=== PATIENT | female | born 1970 | race Caucasian/White ===

== ENCOUNTER 2024-05-23 08:24 | Day surgery (SDC) | payer OTHER, SELFPAY ==
[2024-05-23] VITALS (11 sets, daily range): BP systolic 102–121; BP diastolic 48–83; PULSE 73–105; RESP 13–18; TEMP 36.6–37.7; O2SAT 93–97; BMI 35.9
--- NOTE | 2024-05-23 08:52 | CRLHL7_ITS ---
For Patients: As a result of the Century Cures Act, medical imaging exams and procedure reports are released immediately into your electronic medical record. You may view this report before your referring provider. If you have questions, please contact your health care provider. INDICATION: RT SIDED ABD PAIN, VOMITING, DIARRHEA TECHNIQUE: CT of the abdomen and pelvis was obtained with 111 mL of Isovue 370 intravenous contrast. Please note that all CT scans at this facility use dose modulation, iterative reconstruction, and/or weight-based dosing when appropriate to reduce radiation dose to as low as reasonably achievable. COMPARISON: None. FINDINGS: Lower thorax: Left lower lobe calcified granuloma. Liver and biliary tree: Normal. Gallbladder: Normal. Spleen: Normal. Pancreas: Normal. Adrenal glands: Normal. Kidneys and ureters: No hydronephrosis. No obstructing renal calculi. Gastrointestinal tract: Scattered colonic diverticulosis without CT evidence of acute diverticulitis. Normal appendix. 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 No evidence of bowel obstruction. Peritoneal cavity: Trace free fluid within the pelvis. Bladder: Normal. Pelvic organs: Status post hysterectomy. 5.0 x 2.6 centimeter mildly rim enhancing tubular structure is seen in the pelvis (2/107). Vasculature: Normal. Lymph nodes: Normal. Abdominal wall: Small to moderate lower abdominal ventral hernia containing fat and nonobstructed small bowel. Musculoskeletal: [id number] degenerative changes of the visualized spine. Mild degenerative changes of the bilateral hips. IMPRESSION: 1. 5.0 x 2.6 centimeter mildly rim enhancing tubular structure is seen in the pelvis. This may represent Meckel diverticulitis. Pelvic inflammatory disease is also within the differential, though the patient is status post hysterectomy. Consider pelvic ultrasound for further evaluation. 2. 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 No evidence of bowel obstruction. 3. Small to moderate lower abdominal ventral hernia containing fat and nonobstructed small bowel. Please note that all CT scans at this facility use dose modulation, iterative reconstruction, and/or weight-based dosing when appropriate to reduce radiation dose to as low as reasonably achievable. Dictated by West Mariee MD @ 05/23/2024 10:14:35 AM (Electronically Signed)
--- NOTE | 2024-05-23 08:55 | ED.ABDPAIN ---
HPI - Abdominal Pain General Chief Complaint: Abdominal Pain Stated Complaint: abdominal pain Time Seen by Provider: 05/23/24 08:47 History of Present Illness HPI narrative: This 53-year-old female comes in reporting a couple days of abdominal pain with nausea, vomiting, and diarrhea. She thought it was some kind of toxin her virus but symptoms have persisted. She attempted to go to work today but was unable to function because of these symptoms. She is taking Zepbound and has done so for the past 5 months and has not had any previous problem and no recent change in the dosing. She states that she has been unable to take food and drink because of these symptoms. She does arrive with normal vital signs except her heart rate is elevated. Related Data Allergies Allergy/AdvReac Type Severity Reaction Status Date / Time No Known Drug Allergies Allergy Verified 05/23/24 11:32 Review of Systems Status of ROS Reports: 10 or more systems reviewed and unremarkable except as noted in History and below Narrative Constitutional: No fevers, no weight gain or loss. Eyes: No discharge. No vision changes. HENT: No congestion, no sore throat, no ear pain. Cardiovascular: No chest pain, no palpitations. Respiratory: No shortness of breath, no wheezes, no cough. Gastrointestinal: Diffuse abdominal pain radiating through to her back with nausea, vomiting, and diarrhea. Genitourinary: No dysuria, no hematuria. Musculoskeletal: Normal range of motion. Skin: No rashes, no pruritis. Neurological: No dizziness, weakness, sensory change, speech change. Endo/Heme/Allergies: No bruising or bleeding. No polydipsia. Pysch: no suicidality, no anxiety, no insomnia. All other systems reviewed and are negative. PFSH PFS Social History Smoking Status: Never smoker How often do you have a drink containing alcohol: never How often do you have six or more drinks on one occasion: Never AUDIT-C Alcohol total score: 0 Non-prescribed substance use: denies use service: No Exam Narrative: Exam Narrative: Constitutional: Well-developed, well-nourished, no acute distress. HEENT: Normocephalic, atraumatic. Neck: Normal range of motion. Nontender. Supple. Heart: Regular. No murmurs. Normal rate. Intact distal pulses. Lungs: Clear to auscultation. No chest discomfort. No wheezes, rhonchi, or rales. Abdomen: Normal bowel sounds. Diffuse tenderness, right greater than left. Mild rebound tenderness. Genitalia: Deferred. Back: No midline tenderness. Normal range of motion. Extremities: Normal range of motion. No injury. Skin: Intact. No rash. Warm. No erythema or pallor. Neurologic: No altered sensation. No weakness. Alert and oriented. Psychiatric: No suicidality. No anxiety or depression. No insomnia. Nursing notes and vitals signs are reviewed. Const: Vital Signs, click to edit/add: Vital Signs - 24 hr 05/23/24 08:31 Temperature 98.1 F Pulse Rate [Pulse Oximeter] 105 H Respiratory Rate 18 Blood Pressure [Ri t Upper Arm] 116/83 Pulse Oximetry 95 Oxygen Delivery Me thod Room Air Course Vital Signs Vital signs: Initial Vital Signs Temperature 98.1 F 05/23/24 08:31 Temperature Source Temporal Artery Scan 05/23/24 08:31 Pulse Rate 105 H 05/23/24 08:31 Respiratory Rate 18 05/23/24 08:31 Blood Pressure 116/83 05/23/24 08:31 Blood Pressure Mean 94 05/23/24 08:31 Pulse Oximetry 95 05/23/24 08:31 Oxygen Delivery Method Room Air 05/23/24 08:31 Vital Signs Temperature 98.1 F 05/23/24 08:31 Pulse Rate 105 H 05/23/24 08:31 Respiratory Rate 18 05/23/24 08:31 Blood Pressure 116/83 05/23/24 08:31 Pulse Oximetry 95 05/23/24 08:31 Oxygen Delivery Method Room Air 05/23/24 08:31 Temperature 98.1 F 05/23/24 08:31 Pulse Rate 105 H 05/23/24 08:31 Respiratory Rate 18 05/23/24 08:31 Blood Pressure 116/83 05/23/24 08:31 Pulse Oximetry 95 05/23/24 08:31 Oxygen Delivery Method Room Air 05/23/24 08:31 Medications Administered Medications: Discontinued Medications Generic Name Dose Route Start Last Admin Trade Name Freq PRN Reason Stop Dose Admin Hydromorphone HCl 0.25 mg 05/23/24 08:52 05/23/24 12:36 Hydromorphone 0.5 Mg/0.5 Ml Inj IVP 05/23/24 08:53 Not Given ONCE ONE Hydromorphone HCl 0.25 mg 05/23/24 12:37 05/23/24 12:43 Hydromorphone 0.5 Mg/0.5 Ml Inj IVP 05/23/24 12:38 0.25 mg ONCE ONE Administration Sodium Chloride 500 mls @ 500 mls/hr 05/23/24 08:52 05/23/24 09:15 0.9 % Sodium Chloride 500 Ml IV 05/23/24 09:51 500 mls/hr .Q1H ONE Administration Ondansetron HCl 4 mg 05/23/24 08:52 05/23/24 09:15 Ondansetron 2 Mg/Ml Inj IVP 05/23/24 08:53 4 mg ONCE ONE Administration Ondansetron HCl 4 mg 05/23/24 12:37 05/23/24 12:43 Ondansetron 2 Mg/Ml Inj IVP 05/23/24 12:38 4 mg ONCE ONE Administration MDM - Abdominal Pain MDM Narrative Medical decision making narrative: This patient comes in with abdominal pain for the past couple days. An IV was established and labs are acquired. CT imaging is obtained which shows a tubular structure in the pelvis that is suspicious for the possibility of a Meckel's diverticulum. It is near the right ovary and possibly gynecologic in origin. I did consult with the surgeon on-call who reviewed the images and spoke with the radiologist regarding these findings. A pelvic ultrasound was ordered and I did consult with the OBGYN physician on-call. The ultrasound is not showing any particular new information to help understand this tubular structure. She has had a hysterectomy done a couple years ago and this include removal of her fallopian tubes. I relayed these findings to the surgeon on-call who plans to take her to the operating room this afternoon. The patient did receive IV dose of Dilaudid 0.5 mg and Zofran 4 mg which brought good relief to her pain. Lab Data Labs: Lab Results 05/23/24 Range/Units 09:30 WBC 8.95 (4.50-11.00) K/uL RBC 4.96 (4.00-5.20) m/uL Hgb 14.6 (12.0-16.0) gm/dL Hct 44.9 (33.0-51.0) % MCV 91 (80-100) fL MCH 29 (26-34) pg MCHC 33 (32-36) gm/dL RDW Coeff of Lucy 13.2 (11.5-15.5) % Plt Count 295 (140-440) K/uL Neut % (Auto) 77.8 H (42.0-72.0) % Lymph % (Auto) 16.0 L (20-44) % [place] % (Auto) 5.8 (0.0-11.0) % Eos % (Auto) 0.2 (0.0-7.0) % Baso % (Auto) 0.2 (0.0-3.0) % Neut # (Auto) 7.00 (1.7-7.0) K/uL Lymph # (Auto) 1.40 (0.90-2.90) K/uL [place] # (Auto) 0.50 (0.00-0.90) K/UL Eos # (Auto) 0.02 (0.00-0.50) K/uL Baso # (Auto) 0.02 (0.00-0.30) K/uL Abs Immat Gran (auto) 0.00 (0.00-0.30) K/uL Imm/Tot Granulo (auto) 0.0 % Sodium 137 (135-149) mmol/L Potassium 3.9 (3.6-5.1) mmol/L Chloride 106 (96-114) mmol/L Carbon Dioxide 24 (20-32) mmol/L Anion Gap 7 (7-15) mEq/L BUN 13 (7-30) mg/dL Creatinine 0.7 (0.5-1.5) mg/dL Estimated Creat Clear 81.18 Estimated GFR 104 ml/min Glucose 90 (60-115) mg/dL Calcium 10.1 (8.4-10.6) mg/dL Total Bilirubin 0.7 (0.1-1.5) mg/dL Direct Bilirubin 0.2 (0.0-0.5) mg/dL AST 25 (12-35) U/L ALT 17 (4-35) U/L Alkaline Phosphatase 107 (40-150) U/L Total Protein 7.5 (6.0-8.3) g/dL Albumin 4.5 (3.3-5.0) g/dL Lipase 63 (23-300) U/L Imaging Data CT scan - abdomen: Radiologist's impression: 1. 5.0 x 2.6 centimeter mildly rim enhancing tubular structure is seen in the pelvis. This may represent Meckel diverticulitis. Pelvic inflammatory disease is also within the differential, though the patient is status post hysterectomy. Consider pelvic ultrasound for further evaluation. 2. 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 No evidence of bowel obstruction. 3. Small to moderate lower abdominal ventral hernia containing fat and nonobstructed small bowel. Discharge Plan Discharge Clinical Impression: Meckel's diverticulum, Abdominal pain, Ventral hernia Patient Disposition: XFER to OR Condition: Unchanged Follow Up/Referrals: Provider,Not a Local [Primary Care Provider] -
[2024-05-23] MEDS: ONDANSETRON 2 MG/ML inj 4 MG IVP ×3 (09:15→18:52)
[2024-05-23] MEDS: 0.9 % SODIUM CHLORIDE 500 ML 500 ML IV (09:15)
[2024-05-23 09:40] LABS: Basophils Absolute Auto 0.02 K/uL (0.00-0.30); Basophils Percent Auto 0.2 % (0.0-3.0); Eosinophils Absolute Auto 0.02 K/uL (0.00-0.50); Eosinophils Percent Auto 0.2 % (0.0-7.0); Hematocrit 44.9 % (33.0-51.0); Hemoglobin* 14.6 gm/dL (12.0-16.0); Mean Corpuscular HGB Conc 33 gm/dL (32-36); Mean Corpuscular Hemoglobin 29 pg (26-34); Mean Corpuscular Volume 91 fL (80-100); Monocytes Percent Auto 5.8 % (0.0-11.0); Neutrophils Percent Auto 77.8 % (42.0-72.0); Platelet Count* 295 K/uL (140-440); RDW Coefficient of Variation % 13.2 % (11.5-15.5); Red Blood Count 4.96 m/uL (4.00-5.20); White Blood Count* 8.95 K/uL (4.50-11.00)
[2024-05-23 09:45] LABS: Slide Review Reflex No
[2024-05-23 09:57] LABS: Albumin* 4.5 g/dL (3.3-5.0); Chloride* 106 mmol/L (96-114)
[2024-05-23 09:58] LABS: Sodium* 137 mmol/L (135-149)
[2024-05-23 10:00] LABS: Alkaline Phosphatase* 107 U/L (40-150); Anion Gap 7 mEq/L (7-15); Aspartate Amino Transferase* 25 U/L (12-35); Bilirubin Direct* 0.2 mg/dL (0.0-0.5); Bilirubin Total* 0.7 mg/dL (0.1-1.5); Blood Urea Nitrogen* 13 mg/dL (7-30); Carbon Dioxide* 24 mmol/L (20-32); Creatinine* 0.7 mg/dL (0.5-1.5); Est. Creatinine Clearance* 81.18; Estimated Glomerular Filt Rate 104 ml/min; Glucose* 90 mg/dL (60-115); Potassium* 3.9 mmol/L (3.6-5.1); Total Protein* 7.5 g/dL (6.0-8.3)
[2024-05-23 10:01] LABS: Alanine Aminotransferase* 17 U/L (4-35); Calcium* 10.1 mg/dL (8.4-10.6); Lipase* 63 U/L (23-300)
--- NOTE | 2024-05-23 11:18 | CRLHL7_ITS ---
For Patients: As a result of the Century Cures Act, medical imaging exams and procedure reports are released immediately into your electronic medical record. You may view this report before your referring provider. If you have questions, please contact your health care provider. INDICATION: Pain. TECHNIQUE: Ultrasound pelvis transvaginal. Real-time sonographic images with spectral and color Doppler imaging of the ovaries were obtained. COMPARISON: Same day CT of the abdomen and pelvis. FINDINGS: Uterus: Surgically absent. Bowel gas obscures visualization of the ovaries. There is an anechoic tubular cystic structure within the deep midline superior pelvis measuring approximally 5.0 x 2.3 x 2.7 cm. This cystic structure extends slightly inferiorly and to the right adjacent to the right external iliac vessels, similar in appearance to today`s CT. No definite communication is seen between loops of adjacent bowel noting that evaluation is somewhat obscured due to bowel gas shadowing. Cul-de-sac: No significant free fluid. IMPRESSION: : Overall, findings are similar to same day CT. There is a tubular cystic structure deep within the pelvis without definite bowel communication. The ovaries are obscured on ultrasound; however, on CT, this tubular structure is in close proximity to the right ovary. Differential considerations remain a dilated right fallopian tube versus enlarged Meckel`s diverticulum/diverticulitis. The patient is status post hysterectomy. Correlation with prior operative report/surgical pathology may be beneficial to determine if right salpingectomy was performed. Dictated by Hortencia Alexis MD @ 05/23/2024 12:50:38 PM (Electronically Signed)
[2024-05-23] MEDS: HYDROmorphone 0.5 mg/0.5 ml inj 0.25 MG IVP (12:43)
[2024-05-23] MEDS: LACTATED RINGERS 500 ML 500 ML 125 ML IV ×2 (14:38→15:52)
--- NOTE | 2024-05-23 14:40 | P.GSHP_ITS ---
History of Present Illness History of Present Illness Date Seen: 05/23/24 Chief complaint: abdominal pain Narrative: Leena Salgado is a 53 year old female who presents to the emergency department today with abdominal pain for the past 2 days. She states that she woke up at 2:00 a.m. on Monday and had pain in her abdomen with vomiting. She had an episode of diarrhea x1. She has not had a bowel movement since. She states that the pain started in her back and then moved to the front of her abdomen. She states that yesterday she was not feeling good enough to go to work. She tried eating toast yesterday but that was the only thing she could keep down. She has had nausea along with this. Today she tried to go to work but only made it 1 hour and because of ongoing discomfort, she came in to be seen. She states that pressing down on her abdomen and hot pack will make the pain better. She had a pelvic ultrasound as part of her workup and the pain became worse. Her pain is located more in her right lower abdomen now. Movement makes the pain worse as well. She takes naltrexone and bupropion and for weight loss but has not changed her dose recently. She does have a history of gastric bypass. She had a hysterectomy and salpingectomy 2 years ago. They did leave her ovaries. She has also had 2 umbilical hernia repairs. She believes that mesh was used at least 1 of the times. [facility] Medical History (Updated 05/23/24 @ 14:47 by Asha Bennett MD) Vitamin B 12 deficiency ?E53.8 - Deficiency of other specified B group vitamins (ICD-10) Obesity ?E66.9 - Obesity, unspecified (ICD-10) Anxiety ?F41.9 - Anxiety disorder, unspecified (ICD-10) Surgical History (Updated 05/23/24 @ 14:46 by Asha Bennett MD) H/O umbilical hernia repair ?Z98.890 - Other specified postprocedural states (ICD-10) ?Z87.19 - Personal history of other diseases of the digestive system (ICD-10) History of hysterectomy ?Z90.710 - Acquired absence of both cervix and uterus (ICD-10) S/P gastric bypass ?Z98.84 - Bariatric surgery status (ICD-10) Social History Narrative: 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 Nonsmoker. Smoking Status: Never smoker How often do you have a drink containing alcohol: never How often do you have six or more drinks on one occasion: Never AUDIT-C Alcohol total score: 0 Non-prescribed substance use: denies use service: No Meds Home Medications and Allergies Allergies Allergy/AdvReac Type Severity Reaction Status Date / Time No Known Drug Allergies Allergy Verified 05/23/24 11:32 Exam Narrative: Exam Narrative: General appearance: Alert, cooperative, and in no distress Eyes: PERRLA, eye lids clear, and sclera white HENT Head: Normocephalic Ears: External ears normal Pulmonary: Clear to auscultation bilaterally Cardiovascular Heart: Regular rate and rhythm Extremities: warm and well perfused Gastrointestinal Abdominal: Protuberant. Scars consistent with surgical history. Abdominal hernias not actually palpable. She is tender across her right lower abdomen with guarding. She does appear also to have rebound. Musculoskeletal: Extremities: Upper: Both upper extremities have normal joint range of motion and intact strength. Lower: Both lower extremities have normal joint range of motion and intact strength. Skin: Normal skin color, texture, and turgor. Neurologic: No focal deficits Psychiatric: Alert, oriented, cooperative, normal affect. Const: Vital Signs, click to edit/add: Vital Signs - 24 hr 05/23/24 08:31 Temperature 98.1 F Pulse Rate [Pulse Oximeter] 105 H Respiratory Rate 18 Blood Pressure [Ri ght Upper Arm] 116/83 Pulse Oximetry 95 Oxygen Delivery Me thod Room Air Results Results Labs: White blood cell count is normal though she does have a slight left shift. AST and ALT are normal. LFTs are normal. Abdomen CT scan report/results: report reviewed and image reviewed US - pelvic: report reviewed Additional studies: CT scan of the abdomen pelvis done today IMPRESSION: 1. 5.0 x 2.6 centimeter mildly rim enhancing tubular structure is seen in the pelvis. This may represent Meckel diverticulitis. Pelvic inflammatory disease is also within the differential, though the patient is status post hysterectomy. Consider pelvic ultrasound for further evaluation. 2. 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 No evidence of bowel obstruction. 3. Small to moderate lower abdominal ventral hernia containing fat and nonobstructed small bowel. Please note that all CT scans at this facility use dose modulation, iterative reconstruction, and/or weight-based dosing when appropriate to reduce radiation dose to as low as reasonably achievable. Dictated by West Mariee MD @ 05/23/2024 10:14:35 AM Ultrasound of the pelvis done today: IMPRESSION: : Overall, findings are similar to same day CT. There is a tubular cystic structure deep within the pelvis without definite bowel communication. The ovaries are obscured on ultrasound; however, on CT, this tubular structure is in close proximity to the right ovary. Differential considerations remain a dilated right fallopian tube versus enlarged Meckel`s diverticulum/diverticulitis. The patient is status post hysterectomy. Correlation with prior operative report/surgical pathology may be beneficial to determine if right salpingectomy was performed. Dictated by Hortencia Alexis MD @ 05/23/2024 12:50:38 PM Progress Note:A&P Assessment and plan (1) Vitamin B 12 deficiency: Status: Acute (2) Obesity: Status: Acute (3) Anxiety: Status: Acute (4) Ventral hernia: Status: Acute (5) Abdominal pain: Status: Acute (6) Pelvic mass: Status: Acute Plan The patient is a 53-year-old female with acute abdominal pain and a cystic/tubular structure in her pelvis of unclear etiology. This seems consistent clinically with a possible Meckel's diverticulum, however ovarian pathology is not totally ruled out. She also has recurrent small bowel containing ventral hernia, which does not appear to be the source, however certainly she has tenderness in her abdomen over the area. I recommended exploration to evaluate the structure in the pelvis. We discussed that if it is a Meckel's diverticulum that depending on its appearance this can be treated with simple diverticulectomy versus small-bowel resection. I think that given the small bowel containing hernia it is reasonable to repair this, however I would repair this likely with a bio prosthetic mesh. She understands that the risk of recurrence in emergency setting of a recurrent hernia is higher, but I think it is reasonable to try to repair this given her symptoms. We discussed risks of surgery including bleeding, injury to other structures, infection, blood clots, as well as recovery which will depend ultimately on the intraoperative findings.. -she was examined by gynecology in the have less suspicion for ovarian pathology, however they are available if there is any concern about ovarian pathology -we will plan on diagnostic laparoscopy, possible laparotomy, possible bowel resection and hernia repair today. She is agreeable to proceed and signed informed consent.
[2024-05-23] MEDS: PIPERACILLIN/TAZOBACTAM 3.375 GM in 0.9 % SODIUM CHLORIDE Mini-bag 100 ML IVPB (15:06)
[2024-05-23] MEDS: BUPIVACAINE 0.25% 30 ML INJECTION (15:35)
--- NOTE | 2024-05-23 16:07 | W.ANESCHARGE ---
Anesthesia Charges Start Date/Time Anesthesia Start Date: 05/23/24 Anesthesia Start Time: 14:38 Stop Date/Time Anesthesia Stop Date: 05/23/24 Anesthesia Stop Time: 16:53 Summary Emergency: MDA
[2024-05-23] MEDS: BUPIVACAINE LIPOSOME 133 MG/10 ML INJ INJECTION (16:35)
--- NOTE | 2024-05-23 16:47 | PM.GSPRC ---
Operative Note Date of procedure: 05/23/24 Pre-op diagnosis: 1. Acute abdominal pain with pelvic mass, concerning for Meckel's diverticulum versus ovarian pathology. 2. Small bowel containing ventral hernia Post-op diagnosis: 1. Adnexal/fallopian tube torsion 2. Small bowel containing ventral hernia Type of Procedure: 1. Exploratory laparoscopy 2. Excision right adnexa/fallopian tube mass 3. Repair ventral hernia Indications: The patient is a 53-year-old female who presented to the emergency department with abdominal pain which developed 2 days ago. Workup revealed a masslike structure in her right pelvis. Differential included ovarian source versus possible Meckel's diverticulum. Because of her pain consistent with peritonitis I recommended exploration. Of note she also had a hernia with incarcerated bowel. This was thought possibly to be recurrent as she had had prior hernia repairs in the past. After discussion, she agreed to proceed with surgery. Procedure Description: After discussing the risks and benefits of the procedure, the patient signed informed consent.? The operative site was marked and the patient was brought to the operating room and placed on the operating table in supine position.? Care was taken to pad the patient's pressure points.?? The patient was then intubated by anesthesia.?? The operative site was then prepped and draped in the usual sterile fashion.? A time-out was then performed. Entrance the abdomen was obtained via Visiport technique in the left upper quadrant. Layers of the abdominal wall were visualized. The abdomen was insufflated. There was some blood noted in the abdomen initially. There was no sign of injury however in the left upper quadrant. The patient was placed in Trendelenburg position and the cecum and terminal ileum were identified. As the small bowel was moved out of the way in the pelvis, there was a hemorrhagic mass adjacent to the right ovary noted. It appeared as though the ovary was viable and normal appearing, however there was an adnexal mass which had torsed on itself and become hemorrhagic. There was blood noted in the pelvis, explaining the blood noted upon entry to the abdomen. chronometer assembler and adjuster was called for an intraoperative consult. 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 The bowel all appeared healthy. The appendix was examined. This appeared normal. There was no sign of ischemia, no inflammation and no Meckel's diverticulum noted. At this time Dr. Nieto came to the OR and agreed that this appeared to be likely residual fallopian tube/adnexa which had torsed. She agreed that the ovary appeared normal. Therefore, using LigaSure I divided the base of the mass. This was grasped with a clamp. I turned my attention to the hernia. Now having knowledge of the cause of the patient's pain it seems less likely that the hernia has been the culprit, however because this contained bowel which prior to anesthesia was incarcerated, I elected to continue with repair as planned. The hernia measured 2 cm in size. The subcutaneous space where the hernia sac was located was quite large. I attempted to reduce the hernia sac and divide this with LigaSure, however because of the large space but the small hernia size I felt that an open approach would be best. We could remove the right adnexal specimen through the fascial defect and a larger port with larger fascial defect would not need to be placed in order to remove the specimen. Therefore, I made a small incision overlying the fascial opening. The hernia sac was opened and the abdomen was desufflated. I was able to pass the specimen through the incision. This was passed off the field and sent to pathology. I began by excising the hernia sac from subcutaneous space. The patient had previously had hernia repairs, however in the area of this particular hernia there was no mesh noted. Once this was done I created a preperitoneal pocket. The piece of Phasix ST mesh with positioning device was then placed in the opening. The hernia defect once dissected measured 3 cm. Two 0 PDS sutures were then used to secure the mesh to the fascia ensuring it laid flat. The positioning device was removed. The fascial opening was then closed with running 1. PDS suture. Once this was done the abdomen was again insufflated to ensure the mesh laid flat and there was no ongoing bleeding. The left superior edge of the mesh was slightly turned downward. I placed a trans fascial suture using a large needle through the mesh to snug it up in this location. The mesh then appeared to lay flat circumferentially. The mesh was covered with peritoneum except for a small open area in the middle. The abdomen was then desufflated. There was a large subcutaneous space with hernia sac it been. This was tacked down using Vicryl sutures to try to close the space to prevent seroma formation. The incision was closed with 3-0 Vicryl dermal and 4-0 Monocryl running subcuticular suture. The port sites were closed with 4-0 subcuticular suture. Sterile dressings were then applied. ? The patient was then woken and transported to the recovery area in stable condition. ? The patient tolerated the procedure well. Findings: 1. Portion of the right adnexa/fallopian tube causing hemorrhage 2. Viable ovary 3. 3 cm ventral hernia, possibly recurrent 4. Normal small bowel 5. Normal appendix Anesthesia: GETA Surgeon: Asha Bennett MD Estimated blood loss (mL): 5 Specimen: Other Additional Specimen Information: Right fallopian tube/adnexa Condition: stable Disposition: PACU
--- NOTE | 2024-05-23 17:14 | W.ANESCHARGE ---
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
[2024-05-23] MEDS: HYDROCODONE-ACETAMIN 5-325 MG 1 TAB PO (18:16)
--- NOTE | 2024-05-23 20:27 | PC.NURSE ---
shift note: pt to floor from pacu @ 2856. post op vss initiated. pt alert. pt had slight nausea. IV patent. Prn pain medication given for 6/10 RUQ abd pain. pt eating applesauce and drinking juice. Zofran given @ 3210. Lap sites glued and open to air. Ice to abd for comfort.
--- NOTE | 2024-06-04 13:10 | PM.PROC ---
Procedure Note Date Seen: 05/23/24 Will [facility] bill your pro fee for this procedure?: Yes Pre-op diagnosis: Abdominal pain Procedure: Preop diagnosis: Abdominal pain Postoperative diagnosis: Torsion of portion of right fallopian tube Procedure: Laparoscopic removal of portion of right fallopian tube Anesthesia: General endotracheal, local Surgeon: Asha Bennett MD Consulting surgeon: Dalia Nieto MD Findings: On laparoscopy: Both ovaries were normal. There was an edematous, necrotic, black-colored tubular structure that was twisted at the junction of the fallopian tube in right ovary so the presumption was a torsion of a portion of the right fallopian tube. The patient has a history of hysterectomy with bilateral salpingectomy. Procedure: Please see Dr. Bennett's note for complete details. I was asked to the operating room for consultation by Dr. Shankar for evaluation of a torsion of what looks like a portion of the right fallopian tube. I agreed with Dr. Bennett's assessment. She removed the suspected torsion of a portion of the right fallopian tube and sent it to pathology for diagnosis. I did not scrub into the procedure.
== END 2024-05-23 20:35 | disposition home or self-care (01) ==
LOC: ED 14:11 → SS 15:03 → MEDSURG 17:27
PROVIDERS: Emergency Provider Emergency Medicine Emergency Medical Services; Visit Provider Surgery
PROC: (CPT 49320; principal; 2024-05-23 14:30)
DX: N83.521 Torsion of right fallopian tube (principal); K43.6 Other and unspecified ventral hernia with obstruction, without gangrene; R19.09 Other intra-abdominal and pelvic swelling, mass and lump; R10.31 Right lower quadrant pain; Z90.710 Acquired absence of both cervix and uterus; Z98.84 Bariatric surgery status; E66.9 Obesity, unspecified; F41.9 Anxiety disorder, unspecified; E53.8 Deficiency of other specified B group vitamins
CPT/HCPCS: 49594; 58661; 00840; 36415; 74177; 76830; 80048; 80076; 83690; 85025; 88305; 99140; 99285; A4467; A9270; C1781; C9290; J0330; J0665; J1100; J1171; J1630; J1885; J2250; J2371; J2405; J2543; J2704; J3010; J3490; J7030; J7120; Q9967